=== PATIENT | female | born 1955 | race American Indian/Alaskan Native ===

== ENCOUNTER 2023-04-22 13:40 | Outpatient (CLI) | payer BC, OTHER ==
[~2023-04-22 13:40] MED LIST: COR3.125T PO; FURO-149 PO; HAWT150C PO; SPIR25TA PO
== END 2023-04-22 23:59 | disposition home or self-care (01) ==
LOC: RAD 13:40
PROVIDERS: ATTEND Family Medicine
DX: I08.8 Other rheumatic multiple valve diseases (principal); I11.0 Hypertensive heart disease with heart failure; I50.9 Heart failure, unspecified
CPT/HCPCS: 93306